=== PATIENT | female | born 1990 | race Caucasian/White ===

== ENCOUNTER 2017-11-21 11:44 | Emergency (ER) | payer OTHER ==
[2017-11-21 11:54] VITALS: BP 132/80; BMI 44.1
[2017-11-21] MEDS ORDERED: TYLENOL 500 MG TAB EXTRA STRENGTH PO ONE ×2 (12:10→12:14)
--- NOTE | 2017-11-21 12:47 | DR.GENAD ---
HPI - PCP Primary Care Physician: rio - Complaint/Symptoms Chief Complaint Doctors Comments: History as stated. Patient is concerned that she had temperature on last night. She denies vomiting or diarrhea or headache. Chief Complaint:: pt stated that she tested positive for the flu 2 days ago and was given several meds but she is still feeling bad Self Treatment fo Chief Complaint: tamiflu-75 mg times 4 doses. 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, Tonsillectomy - Family History History of Family Medical Conditions: Yes Family Medical History: Diabetes Mellitus - Social History Does patient currently use any type of tobacco product: No Have you used tobacco products in the last 12 months: No Type of Tobacco Use: None Does any household member use tobacco: No Alcohol Use: Rarely Do you use any recreational Drugs:: No Lives With: Family Lives Where: Home - infectious screening In the last 2 months have you had wt loss of >10#?: NO Have you had fever, night sweats or hemotysis?: No Have you traveled outside the country in the last 6 months?: No Isolation: Standard ROS - Review of Systems Eyes: No Symptoms Reported ENTM: No Symptoms Reported Respiratoy: No Symptoms Reported Cardiovascular: No Symptoms Reported Gastrointestinal/Abdominal: No Symptoms Reported Genitourinary: No Symptoms Reported Neurological: No Symptoms Reported Musculoskeletal: No Symptoms Reported Integumentary: No Symptoms Reported Hematologic/Lymphatic: No Symptoms Reported Endocrine: No Symptoms Reported Psychiatric: No Symptoms Reported All Other Systems: Reviewed and Negative PE - Vital Signs Vitals: Temperature 102.2 F Pulse Rate 103 Respiratory Rate 18 Blood Pressure 132/80 O2 Sat by Pulse Oximetry 99 - General General Appearance: Alert - Head Head Exam: Normal Inspection, Atraumatic - Eyes Eye exam: Normal Appearance, PERRL, EOMI - ENT ENT Exam: Normal Exam, Mucous Membranes Moist TM/Canal Exam: Bilateral Normal Nose Exam: Normal Nose Exam Mouth Exam: Normal Inspection Throat Exam: Normal Inspection - Neck Neck Exam: Normal Inspection - Chest Chest Inspection: Normal Inspection - Respiratory Respiratory Exam: Normal Lung Sounds Bilat Respiratory Exam: Bilateral Clear to Auscultation - Cardiovascular Cardiovascular Exam: Regular Rate - Abdominal Exam Abdominal Exam: Normal Inspection, Normal Bowel Sounds Abdominal Tenderness: negative: RUQ, RLQ, LUQ, LLQ, Epigastrium, Suprapubic, Diffuse, Mild, Moderate, Severe, Other - Extremities Extremities Exam: Normal Inspection, Full ROM - Back Back Exam: Normal Inspection - Neurologic Neurological Exam: Alert, Oriented X3, CN II-XII Intact - Psychiatric Psychiatric Exam: Normal Affect, Normal Mood - Skin Skin Exam: Warm, Dry, Intact - Diagnosis Discharge Problem: Influenza A - Discharge Plan Condition: Stable - Follow ups/Referrals Follow ups/Referrals: CHRISTI ESPARZA [Primary Care Provider] - 3 days - Instructions
== END 2017-11-21 12:55 | disposition home or self-care (01) ==
LOC: ER 12:00
DX: J11.1 Influenza due to unidentified influenza virus with other respiratory manifestations (principal)
CPT/HCPCS: 99281; 99282

== ENCOUNTER 2022-07-12 20:44 | Observation (INO) ==
--- NOTE | 2022-07-12 20:55 | ED.ABDFE ---
HPI Time Seen Time Seen by Provider: 07/12/22 21:03 Complaint Doctors Chief Complaint Comments: 32 y/o female presents with abdominal pain, fever. Started feeling poorly yesterday. Had mild abdominal pain, some diarrhea. Worsened today. Having left sided adbominal pain, worse LLQ, + radiates to rest of abdomen/chest. + fever, chills, nausea. No vomiting, no urinary issues. Denies congestion, cough, sore throat. 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 Reviewed Nurses Notes Review: Yes Source History Provided: Patient Mode of arrival Mode of Arrival: Ambulatory PMH PMH Past Medical History: Hypertension Past Surgical History: Yes Surgical History: Abdominal Surgery (Gastric sleeve), Cholecystectomy, [employer] Surgery and Tonsillectomy Family History Family Medical History: Diabetes Mellitus, Cancer and Hypertension Social History Do you use any recreational Drugs:: No ROS Review of Systems Constitutional: Chills, Fever and Weakness Eyes: No Symptoms Reported ENTM: No Symptoms Reported Respiratoy: No Symptoms Reported Cardiovascular: No Symptoms Reported Gastrointestinal/Abdominal: Abdominal Pain and Nausea Genitourinary: No Symptoms Reported Neurological: Weakness and Dizziness Musculoskeletal: No Symptoms Reported Integumentary: No Symptoms Reported Hematologic/Lymphatic: No Symptoms Reported Psychiatric: No Symptoms Reported PE Vital Signs Vitals: Temperature 99.6 F Pulse Rate [Left Brachial] 110 Pulse Rate 130 Respiratory Rate 20 Blood Pressure [Right Arm] 136/60 Blood Pressure 126/69 O2 Sat by Pulse Oximetry 98 General General Appearance: Alert and In Distress Eyes Eye exam: PERRL and EOMI ENT ENT Exam: Mucous Membranes Moist Neck Neck Exam: Normal Inspection Respiratory Respiratory Exam: Normal Lung Sounds Bilat; negative Accessory Muscle Use or Respiratory Distress Cardiovascular Cardiovascular Exam: Regular Rate, Normal Rhythm and Normal Heart Sounds Abdominal Exam Abdominal Exam: Normal Bowel Sounds, Soft and Tenderness (LLQ, with degree of rebound,) Back Back Exam: Normal Inspection; negative (R) CVA Tenderness or (L) CVA Tenderness Extremeties Extremities Exam: Normal Inspection and Full ROM; negative Edema Neurologic Neurological Exam: Alert, Oriented X3 and CN II-XII Intact; negative Motor Sensory Deficit Skin Skin Exam: Warm and Dry COURSE Treatment Treatment: 32 y/o with worsening abdominal pain since yesterday. W/u initiated. Givne IV fluids, IV morphine/zofran. 2238 - + spiked fever here, given tylenol. WBC only 5.8, but has a left shift, with 6% bands. Chemistries, U/a acceptable. Covid/flu negative. Will pursue CT of abd/pelvis with IV contrast. 2333 - CT abd/pelvis reported as no acute abnormalities, except for mild splenomegaly, with normal appendix, and no evidence for inflammation. To me, CT appears to have distension of multiple areas of bowel, mostly large intestine, with air fluid levels, concerning for ileus at least. Discussed [facility] surgery, Dr Cerrato. He reviewed the CT. Will admit the pt, will treat with IV antibiotics. Pt informed of game plan. ROR Labs Reviewed Result Diagrams: 07/12/22 21:45 07/12/22 21:45 Laboratory: WBC 5.0 X10^3/uL (3.6-10.0) 07/12/22 21:45 RBC 4.74 X10^6/uL (3.5-5.4) 07/12/22 21:45 Hgb 12.0 g/dL (12.0-16.0) 07/12/22 21:45 Hct 36.0 % (36.0-47.0) 07/12/22 21:45 MCV 76.0 fL (80.0-100.0) L 07/12/22 21:45 MCH 25.2 pg (27.0-34.0) L 07/12/22 21:45 MCHC 33.2 g/dL (33.0-35.0) 07/12/22 21:45 RDW 17.9 % (11.6-16.5) H 07/12/22 21:45 Plt Count 207 X10^3/uL (150.0-450.0) 07/12/22 21:45 Plt Count Comment Adequate (ADEQUATE) 07/12/22 21:45 MPV 9.2 fL (7.4-11.0) 07/12/22 21:45 Neut % (Auto) 90.5 % (42.0-75.0) H 07/12/22 21:45 Lymph % (Auto) 7.3 % (21.0-51.0) L 07/12/22 21:45 [place] % (Auto) 1.7 % (0.0-13.0) 07/12/22 21:45 Eos % (Auto) 0.3 % (0.9-2.9) L 07/12/22 21:45 Baso % (Auto) 0.2 % (0.2-1.0) 07/12/22 21:45 Neut # (Auto) 4.6 x10^3/uL (2.2-4.8) 07/12/22 21:45 Lymph # (Auto) 0.4 X10^3/uL (1.3-2.9) L 07/12/22 21:45 [place] # (Auto) 0.1 x10^3/uL (0.3-0.8) L 07/12/22 21:45 Eos # (Auto) 0.0 x10^3/uL (0.0-0.2) 07/12/22 21:45 Baso # (Auto) 0.0 X10^3/uL (0.0-0.1) 07/12/22 21:45 Absolute Nucleated RBC 0.2 /100WBC 07/12/22 21:45 Total Counted 100 07/12/22 21:45 Neutrophils % (Manual) 81 % (39-76) H 07/12/22 21:45 Band Neutrophils % 6 % (0-10) 07/12/22 21:45 Lymphocytes % (Manual) 11 % (13-43) L 07/12/22 21:45 Monocytes % (Manual) 2 % (4-9) L 07/12/22 21:45 Plt Morphology Comment Normal (NORMAL) 07/12/22 21:45 RBC Morphology Abnormal (NORMAL) A 07/12/22 21:45 Hypochromasia Slight A 07/12/22 21:45 Anisocytosis Slight A 07/12/22 21:45 Microcytosis Slight A 07/12/22 21:45 Sodium 134 mmol/L (136-145) L 07/12/22 21:45 Corrected Sodium TNP 07/12/22 21:45 Potassium 3.3 mmol/L (3.5-5.1) L 07/12/22 21:45 Chloride 101 mmol/L (98-107) 07/12/22 21:45 Carbon Dioxide 26.0 mmol/L (21-32) 07/12/22 21:45 BUN 6 mg/dL (7-18) L 07/12/22 21:45 Creatinine 0.89 mg/dL (0.55-1.02) 07/12/22 21:45 Est GFR (MDRD) Af Amer > 60 (>60) 07/12/22 21:45 Est GFR (MDRD) Non-Af > 60 (>60) 07/12/22 21:45 Glucose 100 mg/dL (65-99) H 07/12/22 21:45 Calcium 7.3 mg/dL (8.5-10.1) L 07/12/22 21:45 Corrected Calcium 7.9 mg/dL (8.5-10.1) L 07/12/22 21:45 Total Bilirubin 0.30 mg/dL (0.2-1.0) 07/12/22 21:45 AST 13 Units/L (15-37) L 07/12/22 21:45 ALT 21 Units/L (12-78) 07/12/22 21:45 Alkaline Phosphatase 61 Units/L (46-116) 07/12/22 21:45 Total Protein 6.7 g/dL (6.4-8.2) 07/12/22 21:45 Albumin 3.3 g/dL (3.4-5.0) L 07/12/22 21:45 Globulin 3.4 g/dL (2.5-4.5) 07/12/22 21:45 Albumin/Globulin Ratio 1.0 Ratio (1.1-2.1) L 07/12/22 21:45 Lipase 101 Units/L (73-393) 07/12/22 21:45 HCG, Qual Negative <10 mIU/mL 07/12/22 21:45 Specimen Type Clean catch urine 07/12/22 21:14 Urine Color Yellow (YELLOW) 07/12/22 21:14 Urine Appearance Slightly hazy (CLEAR) 07/12/22 21:14 Urine pH 6.0 (5.0 - 8.0) 07/12/22 21:14 Ur Specific [place] 1.025 (1.000-1.030) 07/12/22 21:14 Urine Protein 2+ (NEGATIVE) 07/12/22 21:14 Urine Glucose (UA) Negative (NEGATIVE) 07/12/22 21:14 Urine Ketones 3+ (NEGATIVE) 07/12/22 21:14 Urine Blood 2+ (NEGATIVE) 07/12/22 21:14 Urine Nitrite Negative (NEGATIVE) 07/12/22 21:14 Urine Bilirubin 1+ (NEGATIVE) 07/12/22 21:14 Urine Urobilinogen Normal (NORMAL) 07/12/22 21:14 Ur Leukocyte Esterase 2+ (NEGATIVE) 07/12/22 21:14 Urine RBC 3-5 /HPF (0-3) A 07/12/22 21:14 Urine WBC 3-5 /HPF (0-5) 07/12/22 21:14 Ur Squamous Epith Cells Many /HPF (NEGATIVE) 07/12/22 21:14 Amorphous Sediment 1+ /HPF (NEGATIVE) 07/12/22 21:14 Urine Bacteria Trace /HPF (NEGATIVE) 07/12/22 21:14 Ur Culture Indicated? No/not indicated 07/12/22 21:14 SARS-CoV-2 (PCR) Negative (NEGATIVE) 07/12/22 21:46 Influenza Type A (PCR) Negative (NEGATIVE) 07/12/22 21:46 Influenza Type B (PCR) Negative (NEGATIVE) 07/12/22 21:46 RSV (PCR) Negative (NEGATIVE) 07/12/22 21:46 Opioid Opioid Risk Tool Total: 0 Total Score Risk Category: Low Risk Copyright: Terrance RON predicting aberrant behaviors Discharge Plan Diagnosis Discharge Problem: Abdominal pain, acute, Ileus Discharge Plan Patient Disposition: ADMITTED INPATIENT Condition: Stable Orders to Discharge Patient Discharge Orders: Transfer (Routine); Ordered 07/12/22 Ordered By: Kun Phipps Follow ups/Referrals Follow ups/Referrals: DONNIE SANCHEZ [Primary Care Provider] - 3 days
[2022-07-12 21:01] VITALS: BMI 46.3
[2022-07-12 21:21] LABS: BILIRUBIN,URINE 1+ (NEGATIVE); BLOOD/HEMOGLOBIN,URINE 2+ (NEGATIVE); GLUCOSE, URINE NEGATIVE (NEGATIVE); KETONES,URINE 3+ (NEGATIVE); LEUKOCYTE ESTERASE ,URINE 2+ (NEGATIVE); NITRITES,URINE NEGATIVE (NEGATIVE); PROTEIN,URINE 2+ (NEGATIVE); UROBILINOGEN,URINE NORMAL (NORMAL)
[2022-07-12] MEDS ORDERED: NS 1,000 ML IV 1,000 ML IV ONE (21:21)
[2022-07-12] MEDS ORDERED: ZOFRAN INJ 4 MG VIAL IVP ONE (21:21)
[2022-07-12] MEDS ORDERED: MORPHINE SULFATE INJ 4 MG IVP ONE (21:21)
[2022-07-12] MEDS ORDERED: MORPHINE SULFATE INJ 4 MG ONE (21:26)
[2022-07-12] MEDS ORDERED: NS 1,000 ML IV 1,000 ML ONE (21:26)
[2022-07-12] MEDS ORDERED: ZOFRAN INJ 4 MG VIAL ONE (21:26)
[2022-07-12 21:30] LABS: APPEARANCE,URINE SLIGHTLY HAZY (CLEAR); BACTERIA,URINE TRACE /HPF (NEGATIVE); COLOR,URINE YELLOW (YELLOW); SQUAMOUS EPITHELIAL CELL,UR MANY /HPF (NEGATIVE)
[2022-07-12 21:50] LABS: BASOPHILS % (AUTO) 0.2 % (0.2-1.0); EOSINOPHILS % (AUTO) 0.3 % (0.9-2.9); LYMPHOCYTES # (AUTO) 0.4 X10^3/uL (1.3-2.9); LYMPHOCYTES % (AUTO) 7.3 % (21.0-51.0); MEAN CORPUSCULAR HEMOGLOBIN 25.2 pg (27.0-34.0); MEAN CORPUSCULAR HGB CONC 33.2 g/dL (33.0-35.0); MEAN PLATELET VOLUME 9.2 fL (7.4-11.0); MONOCYTES # (AUTO) 0.1 x10^3/uL (0.3-0.8); MONOCYTES % (AUTO) 1.7 % (0.0-13.0); NEUTROPHILS # (AUTO) 4.6 x10^3/uL (2.2-4.8); NEUTROPHILS % (AUTO) 90.5 % (42.0-75.0); RED BLOOD COUNT 4.74 X10^6/uL (3.5-5.4); RED CELL DISTRIBUTION WIDTH 17.9 % (11.6-16.5)
[2022-07-12 22:09] LABS: SERUM PREGNANCY TEST, QUAL NEGATIVE <10 mIU/mL
[2022-07-12 22:11] LABS: ALANINE AMINOTRANSFERASE 21 Units/L (12-78); ALBUMIN 3.3 g/dL (3.4-5.0); ALKALINE PHOSPHATASE 61 Units/L (46-116); ASPARTATE AMINO TRANSFERASE 13 Units/L (15-37); BLOOD UREA NITROGEN 6 mg/dL (7-18); CALCIUM 7.3 mg/dL (8.5-10.1); CHLORIDE 101 mmol/L (98-107); COR CA(FOR HYPOALB) 7.9 mg/dL (8.5-10.1); CREATININE 0.89 mg/dL (0.55-1.02); LIPASE 101 Units/L (73-393); SODIUM 134 mmol/L (136-145); TOTAL PROTEIN 6.7 g/dL (6.4-8.2); eGFR NON BLACK RACES > 60 (>60)
[2022-07-12 22:19] LABS: ANISOCYTOSIS SLIGHT; BAND NEUTROPHILS % 6 % (0-10); HYPOCHROMASIA SLIGHT; MICROCYTOSIS SLIGHT; PLATELET MORPHOLOGY COMMENT NORMAL (NORMAL)
[2022-07-12] MEDS ORDERED: TYLENOL 500 MG TAB EXTRA STRENGTH PO ONE ×2 (22:20→22:25)
[2022-07-12] MEDS ORDERED: NS 100 ML IV 100 ML ONE (22:38)
--- NOTE | 2022-07-12 23:16 | CT ---
PROCEDURE: CT Abdomen and Pelvis without Contrast .HISTORY: Left abdomen pain.TECHNIQUE: Axial images were performed through the abdomen and pelvis without the administration of IV contrast with multiplanar reformations . Oral contrast was not administered . Dose reduction techniques including Automated Exposure Control (AEC) and adjustment of mA and kV were utilized .COMPARISON: None .TECHNICAL QUALITY: Satisfactory .FINDINGS:Clear lung bases.Splenomegaly at 14.6 cm. Liver, adrenals, pancreas show no abnormality.Kidneys show no stones or obstruction.Previous cholecystectomy.No ascites or pneumoperitoneum.Normal aorta.No lymphadenopathy.No bowel obstruction or inflammation. Normal appendix.Pelvis shows no masses or free fluid with unremarkable reproductive organs and urinary bladder.No acute bony abnormality.IMPRESSION:1. Mild splenomegaly.2. No other abnormality identified.Electronically signed by: Marco Antonio Sommers (Jul 12, 2022 23:15:14)
[2022-07-13] MEDS ORDERED: MORPHINE SULFATE INJ 4 MG ONE (00:17)
[2022-07-13] MEDS ORDERED: FLAGYL IV PREMIX 500 MG BAG 500 MG/100 ML BAG IV ONE (00:17)
[2022-07-13] MEDS: MORPHINE SULFATE INJ 4 MG IVP PRN ×2 (00:25→08:37)
[2022-07-13] MEDS: FLAGYL IV PREMIX 500 MG BAG 500 MG/100 ML BAG IV SCH ×2 (00:25→08:40)
[2022-07-13] MEDS: LEVAQUIN PREMIX IV 750 MG 750 MG/150 ML BAG IV SCH ×2 (01:00→05:04)
[2022-07-13] MEDS: D5 LR 1,000 ML 1,000 ML IV SCH ×3 (01:02→16:53)
[2022-07-13 05:55] LABS: BASOPHILS % (AUTO) 0.4 % (0.2-1.0); EOSINOPHILS % (AUTO) 0.1 % (0.9-2.9); HEMATOCRIT 33.2 % (36.0-47.0); LYMPHOCYTES # (AUTO) 0.3 X10^3/uL (1.3-2.9); LYMPHOCYTES % (AUTO) 4.4 % (21.0-51.0); MEAN CORPUSCULAR HEMOGLOBIN 25.1 pg (27.0-34.0); MEAN CORPUSCULAR HGB CONC 33.2 g/dL (33.0-35.0); MEAN CORPUSCULAR VOLUME 75.5 fL (80.0-100.0); MEAN PLATELET VOLUME 9.2 fL (7.4-11.0); MONOCYTES # (AUTO) 0.6 x10^3/uL (0.3-0.8); MONOCYTES % (AUTO) 7.7 % (0.0-13.0); NEUTROPHILS # (AUTO) 6.3 x10^3/uL (2.2-4.8); NEUTROPHILS % (AUTO) 87.4 % (42.0-75.0); RED CELL DISTRIBUTION WIDTH 17.9 % (11.6-16.5); WHITE BLOOD COUNT 7.3 X10^3/uL (3.6-10.0)
[2022-07-13 06:03] LABS: ALANINE AMINOTRANSFERASE 174 Units/L (12-78); ALBUMIN 2.8 g/dL (3.4-5.0); ALKALINE PHOSPHATASE 108 Units/L (46-116); ASPARTATE AMINO TRANSFERASE 201 Units/L (15-37); BLOOD UREA NITROGEN 5 mg/dL (7-18); CALCIUM 7.2 mg/dL (8.5-10.1); CARBON DIOXIDE 24.9 mmol/L (21-32); CHLORIDE 102 mmol/L (98-107); COR CA(FOR HYPOALB) 8.2 mg/dL (8.5-10.1); COR NA(FOR HYPERGLY) 135 mmol/L (136-145); SODIUM 135 mmol/L (136-145); TOTAL PROTEIN 6.2 g/dL (6.4-8.2); eGFR NON BLACK RACES > 60 (>60)
[2022-07-13] MEDS ORDERED: K-DUR TAB 20 MEQ PO PRN (06:16)
[2022-07-13] MEDS ORDERED: POTASSIUM CHLORIDE LIQ 20 MEQ UDC PO PRN (06:16)
[2022-07-13] MEDS ORDERED: KLOR-CON PO PRN (06:16)
[2022-07-13] MEDS ORDERED: MICRO K EXTEN CAP 10 MEQ PO PRN (06:16)
[2022-07-13] MEDS ORDERED: POTASSIUM CHL 40 MEQ/NS 0.45% 500 ML IV PRN (06:16)
[2022-07-13] MEDS ORDERED: K-RIDER 10 MEQ/NS 100 ML 10 MEQ/100 ML BAG IV PRN (06:16)
[2022-07-13] MEDS ORDERED: POTASSIUM CHL 60 MEQ/NS 0.45% 500 ML IV PRN (06:16)
[2022-07-13] MEDS ORDERED: MICRO K EXTEN CAP 10 MEQ PO SCH (10:00)
[2022-07-13] MEDS: MAGNESIUM SULFATE 1 GRAM/100 mL PREMIX 1 G/100 ML BAG IV PRN ×4 (10:27→14:29)
--- NOTE | 2022-07-13 10:28 | DR.H&P ---
H&P History & Physical for Day of: H&P Date: 07/13/22 Chief Complaint Chief Complaint: Abdominal pain and fever. Allergies Allergies Allergy/AdvReac Type Severity Reaction Status Date / Time shrimp Allergy Verified 11/21/17 11:46 strawberry Allergy Verified 11/21/17 11:46 sulfamethoxazole Allergy Verified 07/12/22 20:58 [From Bactrim] trimethoprim [From Bactrim] Allergy Verified 07/12/22 20:58 History of Present Illness History of Present Illness: 32 yo female with history of gastric sleeve and has one day history of abdominal pain , primarily left side with diarrhea . Has also had fever with some diarrhea and now is not passing any flatus. Has had fever and some nausea. CT of abdomen without oral or IV contrast interpreted as negative but is noted lexie have significant distention of colon . Past Medical History Past Medical History: Hypertension Additional Medical History: Attention deficit disorder Past Surgical History Surgical History: Cholecystectomy, [employer] Surgery, Tonsillectomy and Weight Loss Surgery Family History Family Medical History: Diabetes Mellitus, Cancer, Coronary Artery Disease and Hypertension Social History Does patient currently use any type of tobacco product: No Have you used tobacco products in the last 12 months: No Type of Tobacco Use: None Does any household member use tobacco: No Alcohol Use: None Drug Use: None Medications Home Medications: shrimp Allergy (Verified 11/21/17 11:46) strawberry Allergy (Verified 11/21/17 11:46) sulfamethoxazole [From Bactrim] Allergy (Verified 07/12/22 20:58) trimethoprim [From Bactrim] Allergy (Verified 07/12/22 20:58) CONTINUE taking the following medications doxycycline hyclate 100 mg capsule 1 cap PO QDAY 07/13/22 [History] duloxetine 60 mg capsule,delayed release 1 cap PO QDAY 07/13/22 [History] ferrous sulfate 324 mg (65 mg iron) tablet,delayed release 1 tab PO QDAY 07/13/22 [History] lisdexamfetamine 40 mg capsule (Vyvanse) 1 cap PO QAM 07/13/22 [History] lisinopril 10 mg tablet 1 tab PO QDAY 07/13/22 [History] pantoprazole 40 mg tablet,delayed release 1 tab PO QDAY 07/13/22 [History] spironolactone 25 mg tablet 1 tab PO QDAY 07/13/22 [History] Labs Result Diagrams: 07/13/22 05:12 07/13/22 05:12 Labs: Laboratory WBC 7.3 X10^3/uL (3.6-10.0) 07/13/22 05:12 RBC 4.40 X10^6/uL (3.5-5.4) 07/13/22 05:12 Hgb 11.0 g/dL (12.0-16.0) L 07/13/22 05:12 Hct 33.2 % (36.0-47.0) L 07/13/22 05:12 MCV 75.5 fL (80.0-100.0) L 07/13/22 05:12 MCH 25.1 pg (27.0-34.0) L 07/13/22 05:12 MCHC 33.2 g/dL (33.0-35.0) 07/13/22 05:12 RDW 17.9 % (11.6-16.5) H 07/13/22 05:12 Plt Count 176 X10^3/uL (150.0-450.0) 07/13/22 05:12 Plt Count Comment Adequate (ADEQUATE) 07/12/22 21:45 MPV 9.2 fL (7.4-11.0) 07/13/22 05:12 Neut % (Auto) 87.4 % (42.0-75.0) H 07/13/22 05:12 Lymph % (Auto) 4.4 % (21.0-51.0) L 07/13/22 05:12 [place] % (Auto) 7.7 % (0.0-13.0) 07/13/22 05:12 Eos % (Auto) 0.1 % (0.9-2.9) L 07/13/22 05:12 Baso % (Auto) 0.4 % (0.2-1.0) 07/13/22 05:12 Neut # (Auto) 6.3 x10^3/uL (2.2-4.8) H 07/13/22 05:12 Lymph # (Auto) 0.3 X10^3/uL (1.3-2.9) L 07/13/22 05:12 [place] # (Auto) 0.6 x10^3/uL (0.3-0.8) 07/13/22 05:12 Eos # (Auto) 0.0 x10^3/uL (0.0-0.2) 07/13/22 05:12 Baso # (Auto) 0.0 X10^3/uL (0.0-0.1) 07/13/22 05:12 Absolute Nucleated RBC 0.0 /100WBC 07/13/22 05:12 Total Counted 100 07/12/22 21:45 Neutrophils % (Manual) 81 % (39-76) H 07/12/22 21:45 Band Neutrophils % 6 % (0-10) 07/12/22 21:45 Lymphocytes % (Manual) 11 % (13-43) L 07/12/22 21:45 Monocytes % (Manual) 2 % (4-9) L 07/12/22 21:45 Plt Morphology Comment Normal (NORMAL) 07/12/22 21:45 RBC Morphology Abnormal (NORMAL) A 07/12/22 21:45 Hypochromasia Slight A 07/12/22 21:45 Anisocytosis Slight A 07/12/22 21:45 Microcytosis Slight A 07/12/22 21:45 Sodium 135 mmol/L (136-145) L 07/13/22 05:12 Corrected Sodium 135 mmol/L (136-145) L 07/13/22 05:12 Potassium 3.0 mmol/L (3.5-5.1) L 07/13/22 05:12 Chloride 102 mmol/L (98-107) 07/13/22 05:12 Carbon Dioxide 24.9 mmol/L (21-32) 07/13/22 05:12 BUN 5 mg/dL (7-18) L 07/13/22 05:12 Creatinine 0.60 mg/dL (0.55-1.02) 07/13/22 05:12 Est GFR (MDRD) Af Amer > 60 (>60) 07/13/22 05:12 Est GFR (MDRD) Non-Af > 60 (>60) 07/13/22 05:12 Glucose 120 mg/dL (65-99) H 07/13/22 05:12 Calcium 7.2 mg/dL (8.5-10.1) L 07/13/22 05:12 Corrected Calcium 8.2 mg/dL (8.5-10.1) L 07/13/22 05:12 Magnesium 1.2 mg/dL (1.7-2.9) L 07/13/22 05:12 Total Bilirubin 0.40 mg/dL (0.2-1.0) 07/13/22 05:12 AST 201 Units/L (15-37) H 07/13/22 05:12 ALT 174 Units/L (12-78) H 07/13/22 05:12 Alkaline Phosphatase 108 Units/L (46-116) 07/13/22 05:12 Total Protein 6.2 g/dL (6.4-8.2) L 07/13/22 05:12 Albumin 2.8 g/dL (3.4-5.0) L 07/13/22 05:12 Globulin 3.4 g/dL (2.5-4.5) 07/13/22 05:12 Albumin/Globulin Ratio 0.8 Ratio (1.1-2.1) L 07/13/22 05:12 Lipase 101 Units/L (73-393) 07/12/22 21:45 HCG, Qual Negative <10 mIU/mL 07/12/22 21:45 Specimen Type Clean catch urine 07/12/22 21:14 Urine Color Yellow (YELLOW) 07/12/22 21:14 Urine Appearance Slightly hazy (CLEAR) 07/12/22 21:14 Urine pH 6.0 (5.0 - 8.0) 07/12/22 21:14 Ur Specific [place] 1.025 (1.000-1.030) 07/12/22 21:14 Urine Protein 2+ (NEGATIVE) 07/12/22 21:14 Urine Glucose (UA) Negative (NEGATIVE) 07/12/22 21:14 Urine Ketones 3+ (NEGATIVE) 07/12/22 21:14 Urine Blood 2+ (NEGATIVE) 07/12/22 21:14 Urine Nitrite Negative (NEGATIVE) 07/12/22 21:14 Urine Bilirubin 1+ (NEGATIVE) 07/12/22 21:14 Urine Urobilinogen Normal (NORMAL) 07/12/22 21:14 Ur Leukocyte Esterase 2+ (NEGATIVE) 07/12/22 21:14 Urine RBC 3-5 /HPF (0-3) A 07/12/22 21:14 Urine WBC 3-5 /HPF (0-5) 07/12/22 21:14 Ur Squamous Epith Cells Many /HPF (NEGATIVE) 07/12/22 21:14 Amorphous Sediment 1+ /HPF (NEGATIVE) 07/12/22 21:14 Urine Bacteria Trace /HPF (NEGATIVE) 07/12/22 21:14 Ur Culture Indicated? No/not indicated 07/12/22 21:14 SARS-CoV-2 (PCR) Negative (NEGATIVE) 07/12/22 21:46 Influenza Type A (PCR) Negative (NEGATIVE) 07/12/22 21:46 Influenza Type B (PCR) Negative (NEGATIVE) 07/12/22 21:46 RSV (PCR) Negative (NEGATIVE) 07/12/22 21:46 Review of Systems Constitutional: See HPI Eyes: No Symptoms Reported ENT: No Symptoms Reported Respiratory: No Symptoms Reported Cardiovascular: No Symptoms Reported Gastrointestinal: See HPI Genitourinary: No Symptoms Reported Musculoskeletal: No Symptoms Reported Skin: No Symptoms Reported Neurological: No Symptoms Reported Physical Exam Vital Signs: Temperature 98.3 F Pulse Rate [Left Brachial] 101 Pulse Rate 130 Respiratory Rate 20 Blood Pressure [Left Arm] 127/59 Blood Pressure [Right Arm] 136/60 Blood Pressure 126/69 O2 Sat by Pulse Oximetry 98 Oriented: Normal, Time, Person and Place Eyes: Normal Nose: Normal Throat: Normal Respiratory: Clear Throughout Cardiovascular: Normal : Normal Auscultation: Bowel Sounds: Normal Palpation: Normal Tenderness: Mild (left lateral abdomen) Skin: Normal Musculoskeletal: Normal Psychiatric: Normal Mood Description: Calm Affect: Normal Speech Pattern: Clear Assessment/Plan (1) Enteritis: Status: Acute Plan: Fluids and IV antibiotics (2) Abdominal pain, acute: Status: Acute Plan: as above
[2022-07-13 16:52] VITALS: BP 120/57
--- NOTE | 2022-07-13 18:25 | W.DIS.FURT ---
Summary of Discharge Discharge Summary of Date Date of Exam: 07/13/22 Admission Date Date of Admission: 07/13/22 Admission Diagnosis Patient Problems (Updated 07/13/22 @ 10:27 by Adan Cerrato) Abdominal pain, acute (Acute) R10.9 Ileus (Acute) K56.7 Hospital Course: This is a 32-year old female who presented to the emergency room with abdominal pain, diarrhea and fever. CT scan was read as negative but she had dilated Loops of colon consistent with ileus and after the initial diarrhea was no longer passing flatus . She was admitted with a diagnosis of enterits and was placed on IV antibiotics and observed. 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 Her pain is resolved. She is passing flatus and her abdomen is benign. She will be discharged home and followed up with me in one week. Vital Signs: Vital Signs (72 hours) 07/12/22 20:48 07/12/22 21:39 07/12/22 22:23 Temperature 100.8 F H 102 F H Pulse Rate 130 H Pulse Rate [Left Brachial] Respiratory Rate 20 20 Blood Pressure 126/69 Blood Pressure [Left Arm] Blood Pressure [Right Arm] O2 Sat by Pulse Oximetry 99 Oxygen Delivery Method 07/12/22 22:26 07/12/22 23:52 07/13/22 00:25 Temperature 99.6 F Pulse Rate Pulse Rate [Left Brachial] 110 H Respiratory Rate 20 20 20 Blood Pressure Blood Pressure [Left Arm] Blood Pressure [Right Arm] 136/60 O2 Sat by Pulse Oximetry 98 Oxygen Delivery Method Room Air 07/13/22 00:55 07/13/22 00:20 07/13/22 00:20 Temperature 98.8 F Pulse Rate Pulse Rate [Left Brachial] 108 H Respiratory Rate 20 20 Blood Pressure Blood Pressure [Left Arm] 135/73 Blood Pressure [Right Arm] O2 Sat by Pulse Oximetry 98 Oxygen Delivery Method Room Air Room Air 07/13/22 04:00 07/13/22 08:37 07/13/22 08:45 Temperature 98.3 F Pulse Rate Pulse Rate [Left Brachial] 101 H Respiratory Rate 20 20 Blood Pressure Blood Pressure [Left Arm] 127/59 Blood Pressure [Right Arm] O2 Sat by Pulse Oximetry 98 Oxygen Delivery Method Room Air Room Air 07/13/22 08:00 07/13/22 10:30 07/13/22 12:00 Temperature 97.9 F 98.2 F Pulse Rate Pulse Rate [Left Brachial] 77 78 Respiratory Rate 20 20 20 Blood Pressure Blood Pressure [Left Arm] 126/61 119/58 Blood Pressure [Right Arm] O2 Sat by Pulse Oximetry 100 98 Oxygen Delivery Method Room Air Room Air 07/13/22 16:00 Temperature 98 F Pulse Rate Pulse Rate [Left Brachial] 75 Respiratory Rate 18 Blood Pressure Blood Pressure [Left Arm] 120/57 Blood Pressure [Right Arm] O2 Sat by Pulse Oximetry 100 Oxygen Delivery Method Room Air Labs: Laboratory Last Values WBC 7.3 X10^3/uL (3.6-10.0) 07/13/22 05:12 RBC 4.40 X10^6/uL (3.5-5.4) 07/13/22 05:12 Hgb 11.0 g/dL (12.0-16.0) L 07/13/22 05:12 Hct 33.2 % (36.0-47.0) L 07/13/22 05:12 MCV 75.5 fL (80.0-100.0) L 07/13/22 05:12 MCH 25.1 pg (27.0-34.0) L 07/13/22 05:12 MCHC 33.2 g/dL (33.0-35.0) 07/13/22 05:12 RDW 17.9 % (11.6-16.5) H 07/13/22 05:12 Plt Count 176 X10^3/uL (150.0-450.0) 07/13/22 05:12 Plt Count Comment Adequate (ADEQUATE) 07/12/22 21:45 MPV 9.2 fL (7.4-11.0) 07/13/22 05:12 Neut % (Auto) 87.4 % (42.0-75.0) H 07/13/22 05:12 Lymph % (Auto) 4.4 % (21.0-51.0) L 07/13/22 05:12 [place] % (Auto) 7.7 % (0.0-13.0) 07/13/22 05:12 Eos % (Auto) 0.1 % (0.9-2.9) L 07/13/22 05:12 Baso % (Auto) 0.4 % (0.2-1.0) 07/13/22 05:12 Neut # (Auto) 6.3 x10^3/uL (2.2-4.8) H 07/13/22 05:12 Lymph # (Auto) 0.3 X10^3/uL (1.3-2.9) L 07/13/22 05:12 [place] # (Auto) 0.6 x10^3/uL (0.3-0.8) 07/13/22 05:12 Eos # (Auto) 0.0 x10^3/uL (0.0-0.2) 07/13/22 05:12 Baso # (Auto) 0.0 X10^3/uL (0.0-0.1) 07/13/22 05:12 Absolute Nucleated RBC 0.0 /100WBC 07/13/22 05:12 Total Counted 100 07/12/22 21:45 Neutrophils % (Manual) 81 % (39-76) H 07/12/22 21:45 Band Neutrophils % 6 % (0-10) 07/12/22 21:45 Lymphocytes % (Manual) 11 % (13-43) L 07/12/22 21:45 Monocytes % (Manual) 2 % (4-9) L 07/12/22 21:45 Plt Morphology Comment Normal (NORMAL) 07/12/22 21:45 RBC Morphology Abnormal (NORMAL) A 07/12/22 21:45 Hypochromasia Slight A 07/12/22 21:45 Anisocytosis Slight A 07/12/22 21:45 Microcytosis Slight A 07/12/22 21:45 Sodium 135 mmol/L (136-145) L 07/13/22 05:12 Corrected Sodium 135 mmol/L (136-145) L 07/13/22 05:12 Potassium 3.0 mmol/L (3.5-5.1) L 07/13/22 05:12 Chloride 102 mmol/L (98-107) 07/13/22 05:12 Carbon Dioxide 24.9 mmol/L (21-32) 07/13/22 05:12 BUN 5 mg/dL (7-18) L 07/13/22 05:12 Creatinine 0.60 mg/dL (0.55-1.02) 07/13/22 05:12 Est GFR (MDRD) Af Amer > 60 (>60) 07/13/22 05:12 Est GFR (MDRD) Non-Af > 60 (>60) 07/13/22 05:12 Glucose 120 mg/dL (65-99) H 07/13/22 05:12 Calcium 7.2 mg/dL (8.5-10.1) L 07/13/22 05:12 Corrected Calcium 8.2 mg/dL (8.5-10.1) L 07/13/22 05:12 Magnesium 1.2 mg/dL (1.7-2.9) L 07/13/22 05:12 Total Bilirubin 0.40 mg/dL (0.2-1.0) 07/13/22 05:12 AST 201 Units/L (15-37) H 07/13/22 05:12 ALT 174 Units/L (12-78) H 07/13/22 05:12 Alkaline Phosphatase 108 Units/L (46-116) 07/13/22 05:12 Total Protein 6.2 g/dL (6.4-8.2) L 07/13/22 05:12 Albumin 2.8 g/dL (3.4-5.0) L 07/13/22 05:12 Globulin 3.4 g/dL (2.5-4.5) 07/13/22 05:12 Albumin/Globulin Ratio 0.8 Ratio (1.1-2.1) L 07/13/22 05:12 Lipase 101 Units/L (73-393) 07/12/22 21:45 HCG, Qual Negative <10 mIU/mL 07/12/22 21:45 Specimen Type Clean catch urine 07/12/22 21:14 Urine Color Yellow (YELLOW) 07/12/22 21:14 Urine Appearance Slightly hazy (CLEAR) 07/12/22 21:14 Urine pH 6.0 (5.0 - 8.0) 07/12/22 21:14 Ur Specific [place] 1.025 (1.000-1.030) 07/12/22 21:14 Urine Protein 2+ (NEGATIVE) 07/12/22 21:14 Urine Glucose (UA) Negative (NEGATIVE) 07/12/22 21:14 Urine Ketones 3+ (NEGATIVE) 07/12/22 21:14 Urine Blood 2+ (NEGATIVE) 07/12/22 21:14 Urine Nitrite Negative (NEGATIVE) 07/12/22 21:14 Urine Bilirubin 1+ (NEGATIVE) 07/12/22 21:14 Urine Urobilinogen Normal (NORMAL) 07/12/22 21:14 Ur Leukocyte Esterase 2+ (NEGATIVE) 07/12/22 21:14 Urine RBC 3-5 /HPF (0-3) A 07/12/22 21:14 Urine WBC 3-5 /HPF (0-5) 07/12/22 21:14 Ur Squamous Epith Cells Many /HPF (NEGATIVE) 07/12/22 21:14 Amorphous Sediment 1+ /HPF (NEGATIVE) 07/12/22 21:14 Urine Bacteria Trace /HPF (NEGATIVE) 07/12/22 21:14 Ur Culture Indicated? No/not indicated 07/12/22 21:14 SARS-CoV-2 (PCR) Negative (NEGATIVE) 07/12/22 21:46 Influenza Type A (PCR) Negative (NEGATIVE) 07/12/22 21:46 Influenza Type B (PCR) Negative (NEGATIVE) 07/12/22 21:46 RSV (PCR) Negative (NEGATIVE) 07/12/22 21:46 Reason For Visit: ACUTE ABDOMINAL PAIN, ILEUS Discharge Date Discharge Date: 07/13/22 Discharge Diagnosis All Active Problems (Updated 07/13/22 @ 10:27 by Adan Cerrato) Enteritis (Acute) Influenza A (Acute) Abdominal pain affecting (Acute) Abdominal pain, acute (Acute) Ileus (Acute) Plan of Treatment: see hospital course Discharge Medications Discharge Medications: shrimp Allergy (Verified 11/21/17 11:46) strawberry Allergy (Verified 11/21/17 11:46) sulfamethoxazole [From Bactrim] Allergy (Verified 07/12/22 20:58) trimethoprim [From Bactrim] Allergy (Verified 07/12/22 20:58) CONTINUE taking the following medications doxycycline hyclate 100 mg capsule 1 cap PO QDAY 07/13/22 [History] duloxetine 60 mg capsule,delayed release 1 cap PO QDAY 07/13/22 [History] ferrous sulfate 324 mg (65 mg iron) tablet,delayed release 1 tab PO QDAY 07/13/22 [History] lisdexamfetamine 40 mg capsule (Vyvanse) 1 cap PO QAM 07/13/22 [History] lisinopril 10 mg tablet 1 tab PO QDAY 07/13/22 [History] pantoprazole 40 mg tablet,delayed release 1 tab PO QDAY 07/13/22 [History] spironolactone 25 mg tablet 1 tab PO QDAY 07/13/22 [History] Discharge Disposition Assessment: see hospital course Discharge Plan Discharge Plan Hospital Course: This is a 32-year old female who presented to the emergency room with abdominal pain, diarrhea and fever. CT scan was read as negative but she had dilated Loops of colon consistent with ileus and after the initial diarrhea was no longer passing flatus . She was admitted with a diagnosis of enterits and was placed on IV antibiotics and observed. 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 Her pain is resolved. She is passing flatus and her abdomen is benign. She will be discharged home and followed up with me in one week. Patient Disposition: 01 HOME, SELF-CARE Condition: Stable Plan of Treatment: see hospital course Assessment: see hospital course Prescription drug monitoring program results: PDMP was not reviewed Prescriptions: Continued doxycycline hyclate 100 mg capsule 1 cap PO QDAY spironolactone 25 mg tablet 1 tab PO QDAY pantoprazole 40 mg tablet,delayed release (DR/EC) 1 tab PO QDAY lisinopril 10 mg tablet 1 tab PO QDAY duloxetine 60 mg capsule,delayed release(DR/EC) 1 cap PO QDAY ferrous sulfate 324 mg (65 mg iron) tablet,delayed release (DR/EC) 1 tab PO QDAY Vyvanse 40 mg capsule 1 cap PO QAM Orders to Discharge Patient Discharge Orders: Discharge (Routine); Ordered 07/13/22 Ordered By: Adan Cerrato Follow ups/Referrals Follow ups/Referrals: DONNIE SANCHEZ [Primary Care Provider] - 3 days Adan Cerrato [STAFF PHYSICIAN] - 1 WEEK Instructions Instructions: Abdominal Pain, Adult, [facility] Stand Alone Forms: Excuse From Work or School, Precautions for COVID19, [facility], Patient Portal, Social Distancing
[2022-07-14] MEDS ORDERED: HEMOCYTE-PLUS PO SCH (09:00)
[2022-07-14] MEDS ORDERED: ZESTRIL TAB 10 MG PO SCH (09:00)
[2022-07-14] MEDS ORDERED: PROTONIX TAB 40 MG PO SCH (09:00)
[2022-07-14] MEDS ORDERED: PATIENT'S HOME MEDICATION PO SCH (09:00)
[2022-07-14] MEDS ORDERED: VIBRAMYCIN PO SCH (09:00)
[2022-07-14] MEDS ORDERED: CYMBALTA PO SCH (09:00)
== END 2022-07-13 18:21 | disposition home or self-care (01) ==
LOC: MED/SURG 20:44 → ER 20:44 → MED/SURG 07-13 00:35
PROVIDERS: ADMIT Surgery; ATTEND Surgery
DX: I10 Essential (primary) hypertension; Z20.822 Contact with and (suspected) exposure to COVID-19; K56.7 Ileus, unspecified; R50.9 Fever, unspecified; K52.89 Other specified noninfective gastroenteritis and colitis; R10.84 Generalized abdominal pain; R19.7 Diarrhea, unspecified